=== PATIENT | female | born 1955 | race Caucasian/White ===

== ENCOUNTER 2020-04-17 11:11 | Emergency (ER) | payer OTHER ==
--- NOTE | 2020-04-17 12:18 | XRAY Report ---
PROCEDURE: Knee 3 View LT INDICATIONS: pain/swelling in knee TECHNIQUE: 3 views of the left knee(s) were acquired. COMPARISON: None. FINDINGS: Bones: No acute fractures or dislocations. No suspicious bony lesions. Mild degenerative joint dis ease. Soft tissues: No joint effusion. No suspicious soft tissue calcifications. IMPRESSION: No acute osseous abnormalities. Mild degenerative joint disease. Reviewed by: Chelsey Burnett MD on 04/17/2020 12:17 PM PDT Approved by: Chelsey Burnett MD on 04/17/2020 12:17 PM PDT Station ID: [id number]
[2020-04-17] MEDS ORDERED: oxyCODONE 5 MG TABLET PO STA (13:49)
--- NOTE | 2020-04-17 14:27 | ED Physician Documentation ---
History of Present Illness - Stated complaint Stated Complaint: L KNEE PX - Chief complaint Chief Complaint: Ext Problem - History obtained from History obtained from: Patient - History of Present Illness Pain level max: 8 Pain level now: 8 - Additonal information Additional information: 64-year-old female presents to the emergency department left knee pain for the past 6 weeks. Started after she jammed her knee when she had a tree root while hiking. Has continued to have pain since that time. Saw her doctor who prescribed her Motrin. She states that the pain has increased since that time. No numbness or tingling. Worse with walking, nothing makes it better Review of Systems Constitutional: denies: Fever, Chills Respiratory: denies: Cough GI: denies: Vomiting, Diarrhea Skin: denies: Rash Musculoskeletal: denies: Neck pain, Back pain Neurologic: denies: Headache PD PAST MEDICAL HISTORY - Past Medical History Past Medical History: No - Past Surgical History Past Surgical History: No - Present Medications Home Medications: Ambulatory Orders Medication Instructions Recorded Confirmed Diclofenac Sodium [Voltaren] 4 gm TP Q6H PRN #1 gel..gram. 04/17/20 Oxycodone HCl/Acetaminophen 1 - 2 each PO Q6H PRN #14 tablet 04/17/20 [Percocet 5-325 mg Tablet] - Allergies Allergies/Adverse Reactions: Allergies Allergy/AdvReac Type Severity Reaction Status Date / Time No Known Drug Allergies Allergy Verified 04/17/20 11:25 - Living Situation Living Situation: reports: With family Living Arrangement: reports: At home - Social History Does the pt smoke?: No Smoking Status: Never smoker Does the pt drink ETOH?: No Does the pt have substance abuse?: No - Immunizations Immunizations are current?: Yes - POLST Patient has POLST: No PD ED PE NORMAL - Vitals Vital signs reviewed: Yes - General General: Alert and oriented X 3, No acute distress - HEENT HEENT: Moist mucous membranes - Neck Neck: Supple, no meningeal sign - Cardiac Cardiac: RRR - Respiratory Respiratory: No respiratory distress, Clear bilaterally - Derm Derm: Warm and dry - Extremities Extremities: Other (Tender to palpation along the medial aspect of the left knee. Along the tibial plateau. Mild joint effusion. Unable to tolerate meniscus testing or ligamentous testing.) - Neuro Neuro: Alert and oriented X 3 Results - Vitals Vitals: Vital Signs - 24 hr 07/11/20 11:25 Temperature 36.3 C L Heart Rate 56 L Respiratory 16 Rate Blood Pressure 138/63 H O2 Saturation 96 Oxygen O2 Source Room air - Rads (name of study) Left knee x-ray Radiology: Prelim report reviewed, EMP read contemporaneously, See rad report (No acute bony abnormality. DJD.) PD MEDICAL DECISION MAKING - ED course Complexity details: reviewed results, re-evaluated patient, considered differential, d/w patient, d/w family ED course: Patient with left knee likely meniscus injury. Unable to tolerate testing well. Placed in an articulating knee brace from 10 to 40 degrees. Given a walker as well. Will prescribe pain medication for home and refer her to orthopedics. Patient counseled regarding signs and symptoms for which I believe and urgent re-evaluation would be necessary. Patient with good understanding of and agreement to plan and is comfortable going home at this time This document was made in part using voice recognition software. While efforts are made to proofread this document, sound alike and grammatical errors may occur. Departure - Departure Disposition: 01 Home, Self Care Clinical Impression: Injury of meniscus of left knee Qualifiers: Encounter type: initial encounter Qualified Code(s): S83.8X2A - Sprain of other specified parts of left knee, initial encounter Condition: Good Instructions: ED Meniscal Injury Knee Poss Follow-Up: Luann Crawley MD [Primary Care Provider] - [facility] [Provider Group] - Within 1 week Prescriptions: Oxycodone HCl/Acetaminophen [Percocet 5-325 mg Tablet] 1 - 2 each PO Q6H PRN #14 tablet PRN Reason: pain Diclofenac Sodium [Voltaren] 4 gm TP Q6H PRN #1 gel..gram. PRN Reason: knee pain Comments: Use the brace to help support your knee. Use the walker to help you get around. You need to stay off the knee as much as possible. Use the Voltaren gel and Percocet as prescribed. Follow-up with orthopedics for further care. You may need a referral from your doctor. You likely have damage to the meniscus of your knee. Do not drink alcohol or drive while on narcotic pain medicine. Note that many narcotic pain relievers also contain tylenol/acetaminophen. Please ensure that your total dose of acetaminophen from all sources does not exceed 3 grams (3000mg) per day. You may constipated on this medication, take a stool softener such as "Colace" twice a day while you are on it. Also recommend a [id number] laxative such as senna or MiraLAX any day that you do not have a bowel movement. If you received narcotic pain medication in the emergency department, do not drive or operate machinery for the next 24 hours.
[2020-04-17 14:34] VITALS: BP 130/60
== END 2020-04-17 14:33 | disposition home or self-care (01) ==
LOC: ED 11:11
DX: S83.8X2A Sprain of other specified parts of left knee, initial encounter (principal); X58.XXXA Exposure to other specified factors, initial encounter; Y93.01 Activity, walking, marching and hiking
CPT/HCPCS: 73562; 99283; 99284; A9270

== ENCOUNTER 2020-04-29 19:48 | Outpatient (CLI) | payer OTHER | END 2020-04-29 19:49 | disposition home or self-care (01) | LOC: COV 19:48 | PROVIDERS: ATTEND Family Medicine | DX: Z01.812 Encounter for preprocedural laboratory examination (principal); Z20.828 Contact with and (suspected) exposure to other viral communicable diseases ==